=== PATIENT | female | born 1995 | race Caucasian/White ===

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

== ENCOUNTER 2017-01-02 02:54 | Emergency (ER) | payer OTHER ==
[2017-01-02 03:03] VITALS: BP 129/72; BMI 38.4
--- NOTE | 2017-01-02 03:26 | DR.GENAD ---
HPI - PCP Primary Care Physician: NFD - Complaint/Symptoms Chief Complaint Doctors Comments: LMP was last month; had a miscarriage Chief Complaint:: PT C/O HEADACHE AND NAUSEA SINCE WAKING UP. PT DENIES ANY VOMITTING. - Source History Provided: Patient - Mode of Arrival Mode of Arrival: Ambulatory - Timing Onset of Chief Complaint: 01/01/17 PMH - PMH Past Medical History: Yes Past Medical History Comment: ADD, BELLS PALSY Past Surgical History: No Surgical History: No History - Family History History of Family Medical Conditions: Yes Family Medical History: [place], Coronary Artery Disease - Social History Alcohol Use: None Do you use any recreational Drugs:: No Lives With: Significant Other Lives Where: Home - infectious screening In the last 2 months have you had wt loss of >10#?: NO Have you had fever, night sweats or hemotysis?: No Have you traveled outside the country in the last 6 months?: No Isolation: Standard ROS - Review of Systems Eyes: No Symptoms Reported ENTM: No Symptoms Reported Respiratoy: No Symptoms Reported Cardiovascular: No Symptoms Reported Gastrointestinal/Abdominal: No Symptoms Reported Genitourinary: No Symptoms Reported Neurological: No Symptoms Reported Musculoskeletal: No Symptoms Reported Integumentary: No Symptoms Reported Hematologic/Lymphatic: No Symptoms Reported Endocrine: No Symptoms Reported Psychiatric: No Symptoms Reported All Other Systems: Reviewed and Negative PE - Vital Signs Vitals: Temperature 97.8 F Pulse Rate 100 Respiratory Rate 20 Blood Pressure 129/72 O2 Sat by Pulse Oximetry 98 - General Limitations: No Limitations General Appearance: Alert, In No Apparent Distress - Head Head Exam: Normal Inspection, Atraumatic - Eyes Eye exam: Normal Appearance, PERRL, EOMI - ENT ENT Exam: Normal Exam External Ear Exam: Normal External Inspection TM/Canal Exam: Bilateral Normal Nose Exam: Normal Nose Exam Mouth Exam: Normal Inspection Throat Exam: Normal Inspection - Neck Neck Exam: Normal Inspection - Chest Chest Inspection: Normal Inspection - Respiratory Respiratory Exam: Normal Lung Sounds Bilat Respiratory Exam: Bilateral Clear to Auscultation - Cardiovascular Cardiovascular Exam: Regular Rate, Normal Rhythm - Abdominal Exam Abdominal Exam: Normal Inspection Abdominal Tenderness: negative: RUQ, RLQ, LUQ, LLQ, Epigastrium, Suprapubic, Diffuse, Mild, Moderate, Severe, Other - Extremities Extremities Exam: Normal Inspection, Full ROM - Back Back Exam: Normal Inspection - Neurologic Neurological Exam: Alert, Oriented X3, CN II-XII Intact - Psychiatric Psychiatric Exam: Normal Affect, Normal Mood - Skin Skin Exam: Warm, Dry, Intact - Diagnosis Discharge Problem: Nausea alone Headache Qualifiers: Headache type: unspecified Headache chronicity pattern: acute headache Intractability: not intractable Qualified Code(s): R51 - Headache - Discharge Plan Condition: Stable - Follow ups/Referrals Follow ups/Referrals: NFD,None [Primary Care Provider] - 3 days - Instructions
[2017-01-02] MEDS ORDERED: TORADOL 60 MG VIAL IM ONE (03:29)
[2017-01-02] MEDS ORDERED: TORADOL 60 MG VIAL ONE (03:31)
[2017-01-02] MEDS ORDERED: ZOFRAN TAB 4 MG ONE (03:33)
[2017-01-02] MEDS ORDERED: ZOFRAN TAB 4 MG PO ONE (03:39)
== END 2017-01-02 03:53 | disposition home or self-care (01) ==
LOC: ER 02:54
DX: R51 Headache (principal); R11.0 Nausea
CPT/HCPCS: 99282; S0181; J1885

== ENCOUNTER 2017-01-07 18:48 | Emergency (ER) | payer OTHER ==
[2017-01-07 18:55] VITALS: BP 108/55; BMI 39.6
== END 2017-01-07 22:00 | disposition left against medical advice (07) ==
LOC: ER 18:55
DX: R10.84 Generalized abdominal pain (principal)
CPT/HCPCS: 99281

== ENCOUNTER 2017-01-08 06:09 | Emergency (ER) | payer OTHER ==
[2017-01-08 06:20] VITALS: BP 152/90; BMI 36.8
[2017-01-08 06:56] LABS: BILIRUBIN,URINE NEGATIVE (NEGATIVE); BLOOD/HEMOGLOBIN,URINE 2+ (NEGATIVE); GLUCOSE, URINE NEGATIVE (NEGATIVE); KETONES,URINE NEGATIVE (NEGATIVE); LEUKOCYTE ESTERASE ,URINE NEGATIVE (NEGATIVE); NITRITES,URINE NEGATIVE (NEGATIVE); PROTEIN,URINE 1+ (NEGATIVE); UROBILINOGEN,URINE 1+ (NORMAL)
[2017-01-08 07:03] LABS: BASOPHILS # (AUTO) 0.1 X10^3/uL (0.0-0.1); EOSINOPHILS # (AUTO) 0.2 x10^3/uL (0.0-0.2); EOSINOPHILS % (AUTO) 2.6 % (0.9-2.9); HEMATOCRIT 39.8 % (36.0-47.0); LYMPHOCYTES # (AUTO) 2.7 X10^3/uL (1.3-2.9); LYMPHOCYTES % (AUTO) 30.3 % (21.0-51.0); MEAN CORPUSCULAR HEMOGLOBIN 30.4 pg (27.0-34.0); MEAN CORPUSCULAR HGB CONC 35.1 g/dL (33.0-35.0); MEAN CORPUSCULAR VOLUME 86.6 fL (80.0-100.0); MEAN PLATELET VOLUME 6.9 fL (7.4-11.0); MONOCYTES # (AUTO) 0.8 x10^3/uL (0.3-0.8); MONOCYTES % (AUTO) 9.2 % (0.0-13.0); NEUTROPHILS % (AUTO) 56.9 % (42.0-75.0); PLATELET COUNT 328 X10^3/uL (150.0-450.0); RED BLOOD COUNT 4.59 X10^6/uL (3.5-5.4); RED CELL DISTRIBUTION WIDTH 13.7 % (11.6-16.5); WHITE BLOOD COUNT 8.9 X10^3/uL (3.6-10.0)
[2017-01-08 07:06] LABS: APPEARANCE,URINE SLIGHTLY HAZY (CLEAR); BACTERIA,URINE TRACE /HPF (NEGATIVE); COLOR,URINE DARK YELLOW (YELLOW); SQUAMOUS EPITHELIAL CELL,UR RARE /HPF (NEGATIVE)
[2017-01-08 07:07] LABS: MUCUS,URINE FEW /HPF (NEGATIVE)
[2017-01-08 07:13] LABS: ALANINE AMINOTRANSFERASE 26 Units/L (12-78); ALBUMIN 3.4 g/dL (3.4-5.0); ALKALINE PHOSPHATASE 85 Units/L (45-150); ASPARTATE AMINO TRANSFERASE 18 Units/L (15-37); BLOOD UREA NITROGEN 9 mg/dL (7-18); CALCIUM 8.7 mg/dL (8.5-10.1); CARBON DIOXIDE 29.9 mmol/L (21-32); CHLORIDE 106 mmol/L (98-107); GLUCOSE 84 mg/dL (65-99); SODIUM 141 mmol/L (136-145); TOTAL PROTEIN 7.5 g/dL (6.4-8.2); eGFR BLACK RACES > 60 (>60); eGFR NON BLACK RACES > 60 (>60)
[2017-01-08 07:26] LABS: SERUM PREGNANCY TEST, QUAL NEGATIVE <10 mIU/mL
== END 2017-01-08 08:21 | disposition left against medical advice (07) ==
LOC: ER 06:09
DX: R10.84 Generalized abdominal pain (principal)
CPT/HCPCS: 36415; 80053; 81001; 84703; 85025; 99281; 99282

== ENCOUNTER 2017-02-08 08:16 | Emergency (ER) | payer OTHER ==
[2017-02-08 08:22] VITALS: BP 126/96; BMI 37.5
--- NOTE | 2017-02-08 09:00 | DR.GENAD ---
HPI - PCP Primary Care Physician: none - HPI Comment HPI Comment: PATIENT HAVE SORE THROAT AND CONGESTION SINCE YESTERDAY. FEVER LAST NIGHT PRESENT NOW. WORSE TODAY. - Complaint/Symptoms Chief Complaint Doctors Comments: SORE THROAT, CONGESTION TIMES ONE DAY. Chief Complaint:: pt throat started hurting yesterday and she can't breath out her nose - Nurses notes reviewed Nurses Notes Review: Yes - Source History Provided: Patient - Mode of Arrival Mode of Arrival: Ambulatory - Timing Onset of Chief Complaint: 02/07/17 Came on: Suddenly - Duration Duration: Constant Duration: Days PMH - PMH Past Medical History: Yes Past Medical History: Anxiety Past Medical History Comment: ADD, Past Surgical History: No Surgical History: No History - Family History History of Family Medical Conditions: Yes Family Medical History: [place] - Social History Does patient currently use any type of tobacco product: Yes Have you used tobacco products in the last 12 months: Yes Type of Tobacco Use: Cigarettes How many years tobacco product used: 2 Does any household member use tobacco: No Alcohol Use: None Do you use any recreational Drugs:: No Lives With: Family Lives Where: Home - infectious screening In the last 2 months have you had wt loss of >10#?: NO Have you had fever, night sweats or hemotysis?: No Have you traveled outside the country in the last 6 months?: No Isolation: Standard ROS - Review of Systems Constitutional: Fever. negative: Chills, Weakness, Fatigue Eyes: No Symptoms Reported. negative: Eye Pain, Discharge ENTM: Ear Pain, Nose Discharge, Nose Congestion, Throat Pain Respiratoy: Non-Productive Cough. negative: Short of Breath, Wheezing, Hemoptysis Gastrointestinal/Abdominal: No Symptoms Reported Genitourinary: No Symptoms Reported Neurological: No Symptoms Reported Musculoskeletal: Muscle Pain Integumentary: No Symptoms Reported Hematologic/Lymphatic: No Symptoms Reported Endocrine: No Symptoms Reported All Other Systems: Reviewed and Negative PE - Vital Signs Vitals: Temperature 99.7 F Pulse Rate 100 Respiratory Rate 18 Blood Pressure 126/96 O2 Sat by Pulse Oximetry 98 - General Limitations: No Limitations General Appearance: Alert - Head Head Exam: Normal Inspection - Eyes Eye exam: Normal Appearance - ENT ENT Exam: Normal External Ear Exam External Ear Exam: Normal External Inspection TM/Canal Exam: Bilateral Normal Nose Exam: Normal Nose Exam Mouth Exam: Normal Inspection Throat Exam: Normal Inspection - Neck Neck Exam: Normal Inspection - Chest Chest Inspection: Symmetric Chest Wall Rise - Respiratory Respiratory Exam: Normal Lung Sounds Bilat Respiratory Exam: Bilateral Clear to Auscultation - Cardiovascular Cardiovascular Exam: Regular Rate, Normal Rhythm, Normal Heart Sounds - Abdominal Exam Abdominal Exam: Normal Bowel Sounds, Soft. negative: Tenderness - Extremities Extremities Exam: Normal Inspection - Back Back Exam: Normal Inspection - Neurologic Neurological Exam: Alert, Oriented X3 - Psychiatric Psychiatric Exam: Normal Affect, Normal Mood - Skin Skin Exam: Normal Color MDM - Additional Information Additional Information Obtained From: Family - Differential Diagnosis Differential Diagnosis: SORE THROAT, SINUSITIS, URI, BRONCHITIS Course - Treatment Treatment: SEE ORDERS - Education/Counseling Education/Counseling: Patient, Family, Education Educated On: Treatment, Diagnosis, Needs for Follow Up ROR - Labs Reviewed Laboratory Results Reviewed?: Yes Laboratory: Streptococcus Screen Negative (NEGATIVE) 02/08/17 09:00 - Diagnosis Discharge Problem: Sore throat Sinusitis Qualifiers: Sinusitis location: unspecified location Chronicity: acute Recurrence: not specified as recurrent Qualified Code(s): J01.90 - Acute sinusitis, unspecified - Discharge Plan Disposition: HOME, SELF-CARE Condition: Stable Prescriptions: Amoxicillin [Amoxil 875 mg] 875 mg PO Q12H #20 tab Cetirizine HCl [Zyrtec Tab 10 mg] 10 mg PO DAILY #10 tab Ibuprofen [MOTRIN TAB 600 MG *] 600 mg PO TID PRN #20 tab PRN Reason: Pain/Inflammation - Follow ups/Referrals Follow ups/Referrals: NFD,None [Primary Care Provider] - 3 days - Instructions Instructions: Sinusitis, Adult, [id number] Additional Instructions: RETURN TO ED IF WORSE.
== END 2017-02-08 10:41 | disposition home or self-care (01) ==
LOC: ER 08:32
DX: J01.80 Other acute sinusitis (principal); J02.9 Acute pharyngitis, unspecified
CPT/HCPCS: 87070; 87880; 99282

== ENCOUNTER 2017-02-21 08:22 | Emergency (ER) | payer OTHER ==
[2017-02-21 08:35] VITALS: BP 138/69; BMI 36.6
--- NOTE | 2017-02-21 09:04 | ED.ABDFE ---
HPI - Time seen Time seen: 09:00 - PCP Primary Care Physician: ADELE - HPI Comment HPI Comment: LATE PERIOD TIMES 2 WEEKS. LOWER ABDOMINAL PAIN SINCE LAST NIGHT. NO FEVER. NAUSEATED. NO DIARRHEA. - Complaint Chief Complaint Doctors Comments: LOWER ABDOMINAL PAIN, NAUSEA AND LATE PERIOD. Chief Complaint:: PT C/O LOWER ABD PAIN THAT STARTED LASTNIGHT AND N/V TIMES ONE PT IS FOUR DAYS LATE ON HER PERIOD AND SHE TOOK 2 TEST ON 02/20/17 AND THEY WERE (-) ..... - Nurses notes reviewed Nurses Notes Review: Yes - Source History Provided: Patient - Mode of arrival Mode of Arrival: Ambulatory - Timing Onset of Chief Complaint: 02/20/17 Came on: Suddenly - Duration Duration: Constant Duration: Hours - Location Location: LUQ, LLQ, Suprapubic - Severity Severity: Moderate - Quality Quality: Sharp - Context Onset: Suddenly - Modifying Worsening Factors: Nothing Improving Factors: Nothing - Associated signs and symptoms Associated Signs and Symptoms: Nausea PMH - PMH Past Medical History: Yes Past Medical History: Anxiety Past Medical History Comment: ADHD, MOOD DISORDER , BELLS PALSY.. Past Surgical History: No Surgical History: No History - Family History History of Family Medical Conditions: Yes Family Medical History: Hypertension Family Medical History Comment: HEART? - Social History Does patient currently use any type of tobacco product: Yes Have you used tobacco products in the last 12 months: Yes Type of Tobacco Use: Cigarettes How many years tobacco product used: 2 Does any household member use tobacco: No Alcohol Use: None Do you use any recreational Drugs:: No Lives With: Family Lives Where: Home - infectious screening In the last 2 months have you had wt loss of >10#?: NO Have you had fever, night sweats or hemotysis?: No Have you traveled outside the country in the last 6 months?: No Isolation: Standard ROS - Review of Systems Constitutional: No Symptoms Reported Eyes: No Symptoms Reported ENTM: No Symptoms Reported Respiratoy: No Symptoms Reported Cardiovascular: No Symptoms Reported Gastrointestinal/Abdominal: Abdominal Pain, Nausea Genitourinary: negative: Dysuria, Frequency, Hematuria Neurological: No Symptoms Reported Musculoskeletal: No Symptoms Reported Integumentary: No Symptoms Reported Hematologic/Lymphatic: No Symptoms Reported Endocrine: No Symptoms Reported All Other Systems: Reviewed and Negative PE - Vital Signs Vitals: Temperature 98.7 F Pulse Rate 86 Respiratory Rate 20 Blood Pressure 138/69 O2 Sat by Pulse Oximetry 97 - General Limitations: No Limitations General Appearance: Alert - Head Head Exam: Normal Inspection - Eyes Eye exam: Normal Appearance - ENT ENT Exam: Normal External Ear Exam - Neck Neck Exam: Trachea Midline - Chest Chest Inspection: Symmetric Chest Wall Rise - Respiratory Respiratory Exam: Normal Lung Sounds Bilat Respiratory Exam: Bilateral Clear to Auscultation - Cardiovascular Cardiovascular Exam: Regular Rate, Normal Rhythm, Normal Heart Sounds - Abdominal Exam Abdominal Exam: Normal Bowel Sounds, Soft. negative: Tenderness - Rectal Rectal Exam: Deferred - Back Back Exam: Normal Inspection - External Exam: Female: Normal External Exam : Speculum Exam (Female): Deferred : Bimanual Exam (female): Deferred - Neurologic Neurological Exam: Alert, Oriented X3 - Psychiatric Psychiatric Exam: Normal Affect, Normal Mood - Skin Skin Exam: Normal Color MDM - Differential Diagnosis Differential Diagnosis- Considerations may include:: Cholelethiasis, Gastritus/ PUD, Urinary tract infection Course - Treatment Treatment: SEE ORDERS. ORAL POTASSIUM AND ZOFRAN IN ED. - Education/Counseling Education/Counseling: Patient, Education Educated On: Treatment, Diagnosis, Needs for Follow Up ROR - Labs Reviewed Laboratory Results Reviewed?: Yes Result Diagrams: 02/21/17 09:15 02/21/17 09:15 Laboratory: WBC 8.9 X10^3/uL (3.6-10.0) 02/21/17 09:15 RBC 4.33 X10^6/uL (3.5-5.4) 02/21/17 09:15 Hgb 13.1 g/dL (12.0-16.0) 02/21/17 09:15 Hct 37.7 % (36.0-47.0) 02/21/17 09:15 MCV 87.1 fL (80.0-100.0) 02/21/17 09:15 MCH 30.2 pg (27.0-34.0) 02/21/17 09:15 MCHC 34.7 g/dL (33.0-35.0) 02/21/17 09:15 RDW 13.6 % (11.6-16.5) 02/21/17 09:15 Plt Count 301 X10^3/uL (150.0-450.0) 02/21/17 09:15 MPV 7.1 fL (7.4-11.0) L 02/21/17 09:15 Neut % 58.0 % (42.0-75.0) 02/21/17 09:15 Lymph % 30.0 % (21.0-51.0) 02/21/17 09:15 [place] % 6.4 % (0.0-13.0) 02/21/17 09:15 Eos % 4.4 % (0.9-2.9) H 02/21/17 09:15 Baso % 1.2 % (0.2-1.0) H 02/21/17 09:15 Neut # 5.2 x10^3/uL (2.2-4.8) H 02/21/17 09:15 Lymph # 2.7 X10^3/uL (1.3-2.9) 02/21/17 09:15 [place] # 0.6 x10^3/uL (0.3-0.8) 02/21/17 09:15 Eos # 0.4 x10^3/uL (0.0-0.2) H 02/21/17 09:15 Baso # 0.1 X10^3/uL (0.0-0.1) 02/21/17 09:15 Absolute Nucleated RBC 0.0 /100WBC 02/21/17 09:15 Sodium 143 mmol/L (136-145) 02/21/17 09:15 Corrected Sodium TNP 02/21/17 09:15 Potassium 3.4 mmol/L (3.5-5.1) L 02/21/17 09:15 Chloride 108 mmol/L (98-107) H 02/21/17 09:15 Carbon Dioxide 28.7 mmol/L (21-32) 02/21/17 09:15 BUN 8 mg/dL (7-18) 02/21/17 09:15 Creatinine 0.73 mg/dL (0.55-1.02) 02/21/17 09:15 Est GFR (MDRD) Af Amer > 60 (>60) 02/21/17 09:15 Est GFR (MDRD) Non-Af > 60 (>60) 02/21/17 09:15 Glucose 82 mg/dL (65-99) 02/21/17 09:15 Calcium 8.5 mg/dL (8.5-10.1) 02/21/17 09:15 Corrected Calcium 9.3 mg/dL (8.5-10.1) 02/21/17 09:15 Total Bilirubin 0.50 mg/dL (0.2-1.0) 02/21/17 09:15 AST 18 Units/L (15-37) 02/21/17 09:15 ALT 23 Units/L (12-78) 02/21/17 09:15 Alkaline Phosphatase 81 Units/L (46-116) 02/21/17 09:15 Total Protein 6.8 g/dL (6.4-8.2) 02/21/17 09:15 Albumin 3.0 g/dL (3.4-5.0) L 02/21/17 09:15 Globulin 3.8 g/dL (2.5-4.5) 02/21/17 09:15 Albumin/Globulin Ratio 0.8 Ratio (1.1-2.1) L 02/21/17 09:15 Amylase 37 Units/L (25-115) 02/21/17 09:15 Lipase 103 Units/L (73-393) 02/21/17 09:15 HCG, Qual Negative <10 mIU/mL 02/21/17 09:15 Specimen Type Clean catch urine 02/21/17 09:22 Urine Color Yellow (YELLOW) 02/21/17 09: Urine Appearance Cloudy (CLEAR) 02/21/17 09:22 Urine pH 5.0 (5.0 - 8.0) 02/21/17 09:22 Ur Specific [place] 1.025 (1.000-1.030) 02/21/17 09:22 Urine Protein 2+ (NEGATIVE) 02/21/17 09:22 Urine Glucose (UA) Negative (NEGATIVE) 02/21/17 09: Urine Ketones Negative (NEGATIVE) 02/21/17 09: Urine Occult Blood 2+ (NEGATIVE) 02/21/17 09:22 Urine Nitrite Negative (NEGATIVE) 02/21/17 09:22 Urine Bilirubin Negative (NEGATIVE) 02/21/17 09:22 Urine Urobilinogen Normal (NORMAL) 02/21/17 09:22 Ur Leukocyte Esterase 3+ (NEGATIVE) 09/10/17 09:22 Urine RBC 0-5 /HPF (NEGATIVE) 02/21/17 09:22 Urine WBC 5-6 /HPF (NEGATIVE) 02/21/17 09:22 Ur Squamous Epith Cells Moderate /HPF (NEGATIVE) 02/21/17 09:22 Urine Bacteria Trace /HPF (NEGATIVE) 02/21/17 09:22 Ur Culture Indicated? No/not indicated 02/21/17 09:22 - Diagnosis Discharge Problem: Late period Abdominal pain Qualifiers: Abdominal location: lower abdomen, unspecified Qualified Code(s): R10.30 - Lower abdominal pain, unspecified - Discharge Plan Disposition: 01 HOME, SELF-CARE Condition: Stable Prescriptions: Ondansetron HCl [Zofran Tab 4 mg] 4 mg PO Q8H PRN #12 tab PRN Reason: Nausea/Vomiting - Follow ups/Referrals Follow ups/Referrals: NFD,None [Primary Care Provider] - 3 days - Instructions Instructions: Abdominal Pain, Adult, [id number] Additional Instructions: RETURN TO ED IF WORSE.
[2017-02-21 09:26] LABS: BASOPHILS # (AUTO) 0.1 X10^3/uL (0.0-0.1); BASOPHILS % (AUTO) 1.2 % (0.2-1.0); EOSINOPHILS # (AUTO) 0.4 x10^3/uL (0.0-0.2); EOSINOPHILS % (AUTO) 4.4 % (0.9-2.9); HEMATOCRIT 37.7 % (36.0-47.0); HEMOGLOBIN 13.1 g/dL (12.0-16.0); LYMPHOCYTES # (AUTO) 2.7 X10^3/uL (1.3-2.9); MEAN CORPUSCULAR HEMOGLOBIN 30.2 pg (27.0-34.0); MEAN CORPUSCULAR HGB CONC 34.7 g/dL (33.0-35.0); MEAN CORPUSCULAR VOLUME 87.1 fL (80.0-100.0); MEAN PLATELET VOLUME 7.1 fL (7.4-11.0); MONOCYTES # (AUTO) 0.6 x10^3/uL (0.3-0.8); MONOCYTES % (AUTO) 6.4 % (0.0-13.0); NEUTROPHILS # (AUTO) 5.2 x10^3/uL (2.2-4.8); PLATELET COUNT 301 X10^3/uL (150.0-450.0); RED BLOOD COUNT 4.33 X10^6/uL (3.5-5.4); RED CELL DISTRIBUTION WIDTH 13.6 % (11.6-16.5); WHITE BLOOD COUNT 8.9 X10^3/uL (3.6-10.0)
[2017-02-21 09:31] LABS: BILIRUBIN,URINE NEGATIVE (NEGATIVE); BLOOD/HEMOGLOBIN,URINE 2+ (NEGATIVE); GLUCOSE, URINE NEGATIVE (NEGATIVE); KETONES,URINE NEGATIVE (NEGATIVE); LEUKOCYTE ESTERASE ,URINE 3+ (NEGATIVE); NITRITES,URINE NEGATIVE (NEGATIVE); PROTEIN,URINE 2+ (NEGATIVE); UROBILINOGEN,URINE NORMAL (NORMAL)
[2017-02-21 09:34] LABS: ALANINE AMINOTRANSFERASE 23 Units/L (12-78); ALKALINE PHOSPHATASE 81 Units/L (46-116); AMYLASE 37 Units/L (25-115); ASPARTATE AMINO TRANSFERASE 18 Units/L (15-37); BLOOD UREA NITROGEN 8 mg/dL (7-18); CALCIUM 8.5 mg/dL (8.5-10.1); CARBON DIOXIDE 28.7 mmol/L (21-32); CHLORIDE 108 mmol/L (98-107); COR CA(FOR HYPOALB) 9.3 mg/dL (8.5-10.1); CREATININE 0.73 mg/dL (0.55-1.02); LIPASE 103 Units/L (73-393); SODIUM 143 mmol/L (136-145); TOTAL PROTEIN 6.8 g/dL (6.4-8.2); eGFR BLACK RACES > 60 (>60); eGFR NON BLACK RACES > 60 (>60)
[2017-02-21 09:35] LABS: SERUM PREGNANCY TEST, QUAL NEGATIVE <10 mIU/mL
[2017-02-21 09:39] LABS: APPEARANCE,URINE CLOUDY (CLEAR); BACTERIA,URINE TRACE /HPF (NEGATIVE); COLOR,URINE YELLOW (YELLOW); RBC,URINE 0-5 /HPF (NEGATIVE); SQUAMOUS EPITHELIAL CELL,UR MODERATE /HPF (NEGATIVE)
[2017-02-21] MEDS ORDERED: ZOFRAN TAB 4 MG PO ONE (10:02)
[2017-02-21] MEDS ORDERED: POTASSIUM CHLORIDE LIQ 20 MEQ UDC PO ONE (10:03)
[2017-02-21] MEDS ORDERED: K-DUR TAB 20 MEQ PO ONE (10:07)
[2017-02-21] MEDS ORDERED: ZOFRAN TAB 4 MG ONE (10:08)
== END 2017-02-21 10:12 | disposition home or self-care (01) ==
LOC: ER 08:22
DX: N92.6 Irregular menstruation, unspecified (principal); R10.84 Generalized abdominal pain
CPT/HCPCS: 36415; 80053; 81001; 82150; 83690; 84703; 85025; 99282; S0181

== ENCOUNTER 2017-03-16 16:42 | Emergency (ER) | payer OTHER ==
[2017-03-16 16:46] VITALS: BP 126/73; BMI 38.4
--- NOTE | 2017-03-16 17:46 | DR.GENAD ---
HPI - PCP Primary Care Physician: nfd - HPI Comment HPI Comment: PAIN IS SHARP AND NON RADIATING. DENIES FEVER. SIMILAR PAIN FEW MONTHS AGO AND WENT AWAY. - Complaint/Symptoms Chief Complaint Doctors Comments: PAIN RIGHT LOWER ABDOMEN TIMES 3 DAYS. Chief Complaint:: patient stated she has been having right lower abd pain for 2 to 3 days. Self Treatment fo Chief Complaint: tylenol - Nurses notes reviewed Nurses Notes Review: Yes - Source History Provided: Patient - Mode of Arrival Mode of Arrival: Ambulatory - Timing Onset of Chief Complaint: 03/12/17 Came on: Suddenly - Duration Duration: Constant Duration: Days - Severity Severity: Moderate PMH - PMH Past Medical History: No Past Medical History: Anxiety Past Surgical History: No Surgical History: No History - Family History History of Family Medical Conditions: No Family Medical History: Hypertension - Social History Does patient currently use any type of tobacco product: Yes Have you used tobacco products in the last 12 months: Yes Type of Tobacco Use: Cigarettes How many years tobacco product used: 2 Does any household member use tobacco: Yes Alcohol Use: None Do you use any recreational Drugs:: No Lives With: Family Lives Where: Home - infectious screening In the last 2 months have you had wt loss of >10#?: NO Have you had fever, night sweats or hemotysis?: No Have you traveled outside the country in the last 6 months?: No Isolation: Standard ROS - Review of Systems Constitutional: No Symptoms Reported. negative: Chills, Fever, Weakness, Fatigue, Loss of Appetite Eyes: No Symptoms Reported. negative: Eye Pain, Discharge ENTM: No Symptoms Reported. negative: Ear Pain, Nose Discharge, Nose Congestion , Throat Pain Respiratoy: No Symptoms Reported. negative: Productive Cough, Non-Productive Cough, Short of Breath, Wheezing, Hemoptysis Cardiovascular: No Symptoms Reported Gastrointestinal/Abdominal: Abdominal Pain Genitourinary: No Symptoms Reported Neurological: No Symptoms Reported Musculoskeletal: No Symptoms Reported Integumentary: No Symptoms Reported Hematologic/Lymphatic: No Symptoms Reported Endocrine: No Symptoms Reported All Other Systems: Reviewed and Negative PE - Vital Signs Vitals: Temperature 98.9 F Pulse Rate 100 Respiratory Rate 16 Blood Pressure 126/73 O2 Sat by Pulse Oximetry 100 - General Limitations: No Limitations General Appearance: Alert - Head Head Exam: Normal Inspection - Eyes Eye exam: Normal Appearance - ENT ENT Exam: Normal External Ear Exam External Ear Exam: Normal External Inspection TM/Canal Exam: Bilateral Normal Mouth Exam: Normal Inspection Throat Exam: Normal Inspection - Neck Neck Exam: Normal Inspection - Chest Chest Inspection: Symmetric Chest Wall Rise - Respiratory Respiratory Exam: Normal Lung Sounds Bilat Respiratory Exam: Bilateral Clear to Auscultation - Cardiovascular Cardiovascular Exam: Regular Rate, Normal Rhythm, Normal Heart Sounds - Abdominal Exam Abdominal Exam: Normal Bowel Sounds, Soft. negative: Tenderness - Extremities Extremities Exam: Normal Inspection - Back Back Exam: Normal Inspection - Neurologic Neurological Exam: Alert, Oriented X3 - Psychiatric Psychiatric Exam: Normal Affect, Normal Mood - Skin Skin Exam: Normal Color MDM - Additional Information Additional Information Obtained From: Family - Differential Diagnosis Differential Diagnosis: ABDOMINAL PAIN, UTI, OVARIAN CYST Course - Treatment Treatment: SEE ORDERS. - Education/Counseling Education/Counseling: Patient, Family, Education Educated On: Treatment, Diagnosis, Needs for Follow Up ROR - Labs Reviewed Laboratory Results Reviewed?: Yes Result Diagrams: 03/16/17 18:00 03/16/17 18:00 Laboratory: WBC 10.3 X10^3/uL (3.6-10.0) H 03/16/17 18:00 RBC 4.43 X10^6/uL (3.5-5.4) 03/16/17 18:00 Hgb 13.4 g/dL (12.0-16.0) 03/16/17 18:00 Hct 38.2 % (36.0-47.0) 03/16/17 18:00 MCV 86.1 fL (80.0-100.0) 03/16/17 18:00 MCH 30.3 pg (27.0-34.0) 03/16/17 18:00 MCHC 35.2 g/dL (33.0-35.0) H 03/16/17 18:00 RDW 13.3 % (11.6-16.5) 03/16/17 18:00 Plt Count 384 X10^3/uL (150.0-450.0) 03/16/17 18:00 MPV 6.6 fL (7.4-11.0) L 03/16/17 18:00 Neut % 66.1 % (42.0-75.0) 03/16/17 18:00 Lymph % 24.4 % (21.0-51.0) 03/16/17 18:00 [place] % 6.2 % (0.0-13.0) 03/16/17 18:00 Eos % 2.6 % (0.9-2.9) 03/16/17 18:00 Baso % 0.7 % (0.2-1.0) 03/16/17 18:00 Neut # 6.8 x10^3/uL (2.2-4.8) H 03/16/17 18:00 Lymph # 2.5 X10^3/uL (1.3-2.9) 03/16/17 18:00 [place] # 0.6 x10^3/uL (0.3-0.8) 03/16/17 18:00 Eos # 0.3 x10^3/uL (0.0-0.2) H 03/16/17 18:00 Baso # 0.1 X10^3/uL (0.0-0.1) 03/16/17 18:00 Absolute Nucleated RBC 0.0 /100WBC 03/16/17 18:00 Sodium 140 mmol/L (136-145) 03/16/17 18:00 Corrected Sodium TNP 03/16/17 18:00 Potassium 4.3 mmol/L (3.5-5.1) 03/16/17 18:00 Chloride 106 mmol/L (98-107) 03/16/17 18:00 Carbon Dioxide 30.2 mmol/L (21-32) 03/16/17 18:00 BUN 8 mg/dL (7-18) 03/16/17 18:00 Creatinine 0.74 mg/dL (0.55-1.02) 03/16/17 18:00 Est GFR (MDRD) Af Amer > 60 (>60) 03/16/17 18:00 Est GFR (MDRD) Non-Af > 60 (>60) 03/16/17 18:00 Glucose 83 mg/dL (65-99) 03/16/17 18:00 Calcium 8.9 mg/dL (8.5-10.1) 03/16/17 18:00 Corrected Calcium 9.6 mg/dL (8.5-10.1) 03/16/17 18:00 Total Bilirubin 0.40 mg/dL (0.2-1.0) 03/16/17 18:00 AST 16 Units/L (15-37) 03/16/17 18:00 ALT 26 Units/L (12-78) 03/16/17 18:00 Alkaline Phosphatase 92 Units/L (46-116) 03/16/17 18:00 Total Protein 7.0 g/dL (6.4-8.2) 03/16/17 18:00 Albumin 3.1 g/dL (3.4-5.0) L 03/16/17 18:00 Globulin 3.9 g/dL (2.5-4.5) 03/16/17 18:00 Albumin/Globulin Ratio 0.8 Ratio (1.1-2.1) L 03/16/17 18:00 HCG, Qual Negative <10 mIU/mL 03/16/17 18:00 Specimen Type Clean catch urine 03/16/17 18:47 Urine Color Yellow (YELLOW) 03/16/17 18:47 Urine Appearance Clear (CLEAR) 03/16/17 18:47 Urine pH 8.0 (5.0 - 8.0) 03/16/17 18:47 Ur Specific [place] 1.015 (1.000-1.030) 03/16/17 18:47 Urine Protein Negative (NEGATIVE) 03/16/17 18:47 Urine Glucose (UA) Negative (NEGATIVE) 03/16/17 18:47 Urine Ketones Negative (NEGATIVE) 03/16/17 18:47 Urine Occult Blood Negative (NEGATIVE) 03/16/17 18:47 Urine Nitrite Negative (NEGATIVE) 03/16/17 18:47 Urine Bilirubin Negative (NEGATIVE) 03/16/17 18:47 Urine Urobilinogen Normal (NORMAL) 03/16/17 18:47 Ur Leukocyte Esterase Negative (NEGATIVE) 03/16/17 18:47 Urine RBC None seen /HPF (NEGATIVE) 03/16/17 18:47 Urine WBC 0-1 /HPF (NEGATIVE) 03/16/17 18:47 Ur Squamous Epith Cells Rare /HPF (NEGATIVE) 03/16/17 18:47 Urine Bacteria Trace /HPF (NEGATIVE) 03/16/17 18:47 Ur Culture Indicated? No/not indicated 03/16/17 18:47 - Diagnosis Discharge Problem: Abdominal pain Qualifiers: Abdominal location: right lower quadrant Qualified Code(s): R10.31 - Right lower quadrant pain - Discharge Plan Disposition: 01 HOME, SELF-CARE Condition: Stable - Follow ups/Referrals Follow ups/Referrals: NFD,None [Primary Care Provider] - 3 days - Instructions Instructions: Abdominal Pain, Adult, [id number] Additional Instructions: RETURN TO ED IF WORSE.
[2017-03-16 18:08] LABS: BASOPHILS # (AUTO) 0.1 X10^3/uL (0.0-0.1); BASOPHILS % (AUTO) 0.7 % (0.2-1.0); EOSINOPHILS # (AUTO) 0.3 x10^3/uL (0.0-0.2); EOSINOPHILS % (AUTO) 2.6 % (0.9-2.9); HEMATOCRIT 38.2 % (36.0-47.0); HEMOGLOBIN 13.4 g/dL (12.0-16.0); LYMPHOCYTES # (AUTO) 2.5 X10^3/uL (1.3-2.9); LYMPHOCYTES % (AUTO) 24.4 % (21.0-51.0); MEAN CORPUSCULAR HEMOGLOBIN 30.3 pg (27.0-34.0); MEAN CORPUSCULAR HGB CONC 35.2 g/dL (33.0-35.0); MEAN CORPUSCULAR VOLUME 86.1 fL (80.0-100.0); MEAN PLATELET VOLUME 6.6 fL (7.4-11.0); MONOCYTES # (AUTO) 0.6 x10^3/uL (0.3-0.8); MONOCYTES % (AUTO) 6.2 % (0.0-13.0); NEUTROPHILS # (AUTO) 6.8 x10^3/uL (2.2-4.8); NEUTROPHILS % (AUTO) 66.1 % (42.0-75.0); PLATELET COUNT 384 X10^3/uL (150.0-450.0); RED BLOOD COUNT 4.43 X10^6/uL (3.5-5.4); RED CELL DISTRIBUTION WIDTH 13.3 % (11.6-16.5); WHITE BLOOD COUNT 10.3 X10^3/uL (3.6-10.0)
[2017-03-16 18:17] LABS: SERUM PREGNANCY TEST, QUAL NEGATIVE <10 mIU/mL
[2017-03-16 18:21] LABS: ALANINE AMINOTRANSFERASE 26 Units/L (12-78); ALBUMIN 3.1 g/dL (3.4-5.0); ALKALINE PHOSPHATASE 92 Units/L (46-116); ASPARTATE AMINO TRANSFERASE 16 Units/L (15-37); BLOOD UREA NITROGEN 8 mg/dL (7-18); CALCIUM 8.9 mg/dL (8.5-10.1); CARBON DIOXIDE 30.2 mmol/L (21-32); CHLORIDE 106 mmol/L (98-107); COR CA(FOR HYPOALB) 9.6 mg/dL (8.5-10.1); CREATININE 0.74 mg/dL (0.55-1.02); SODIUM 140 mmol/L (136-145); eGFR BLACK RACES > 60 (>60); eGFR NON BLACK RACES > 60 (>60)
[2017-03-16 19:11] LABS: APPEARANCE,URINE CLEAR (CLEAR); BILIRUBIN,URINE NEGATIVE (NEGATIVE); BLOOD/HEMOGLOBIN,URINE NEGATIVE (NEGATIVE); COLOR,URINE YELLOW (YELLOW); GLUCOSE, URINE NEGATIVE (NEGATIVE); KETONES,URINE NEGATIVE (NEGATIVE); LEUKOCYTE ESTERASE ,URINE NEGATIVE (NEGATIVE); NITRITES,URINE NEGATIVE (NEGATIVE); PROTEIN,URINE NEGATIVE (NEGATIVE); UROBILINOGEN,URINE NORMAL (NORMAL)
[2017-03-16 19:12] LABS: BACTERIA,URINE TRACE /HPF (NEGATIVE); RBC,URINE NONE SEEN /HPF (NEGATIVE); SQUAMOUS EPITHELIAL CELL,UR RARE /HPF (NEGATIVE)
== END 2017-03-16 19:31 | disposition home or self-care (01) ==
LOC: ER 16:57
DX: R10.31 Right lower quadrant pain (principal)
CPT/HCPCS: 36415; 80053; 81001; 84703; 85025; 99282

== ENCOUNTER 2017-05-20 11:00 | Emergency (ER) | payer MEDICAID ==
[2017-05-20 11:06] VITALS: BP 132/87; BMI 37.5
--- NOTE | 2017-05-20 11:28 | DR.GENAD ---
HPI - PCP Primary Care Physician: [id number] - Complaint/Symptoms Chief Complaint:: PT C/O PAIN TO THE RIGHT SIDE OF HER MOUTH WHILE EATING CEREAL A FEW DAYS AGO PT STATES THAT IT'S NOT HER TOOTH ,, PT C/O THAT IS PAIN TO TOUCH THE OUTSIDE OF THE JAW AND THE INSIDE ". Self Treatment fo Chief Complaint: MOTRIN, TYLENOL. - Source History Provided: Patient - Mode of Arrival Mode of Arrival: Ambulatory - Timing Onset of Chief Complaint: 05/17/17 PMH - PMH Past Medical History: Yes Past Medical History: Anxiety Past Medical History Comment: BELLS PALSY, ADD Past Surgical History: No Surgical History: No History - Family History History of Family Medical Conditions: No Family Medical History: Hypertension - Social History Does patient currently use any type of tobacco product: Yes Have you used tobacco products in the last 12 months: Yes Type of Tobacco Use: Cigarettes How many years tobacco product used: 2 Does any household member use tobacco: No Alcohol Use: None Do you use any recreational Drugs:: No Lives With: Family Lives Where: Home - infectious screening In the last 2 months have you had wt loss of >10#?: NO Have you had fever, night sweats or hemotysis?: No Have you traveled outside the country in the last 6 months?: No Isolation: Standard ROS - Review of Systems Eyes: No Symptoms Reported ENTM: No Symptoms Reported Respiratoy: No Symptoms Reported Cardiovascular: No Symptoms Reported Gastrointestinal/Abdominal: No Symptoms Reported Genitourinary: No Symptoms Reported Neurological: No Symptoms Reported Musculoskeletal: No Symptoms Reported Integumentary: No Symptoms Reported Hematologic/Lymphatic: No Symptoms Reported Endocrine: No Symptoms Reported Psychiatric: No Symptoms Reported All Other Systems: Reviewed and Negative PE - Vital Signs Vitals: Temperature 98.6 F Pulse Rate 96 Respiratory Rate 18 Blood Pressure 132/87 O2 Sat by Pulse Oximetry 96 - General General Appearance: Alert, In No Apparent Distress - Head Head Exam: Normal Inspection, Atraumatic - Eyes Eye exam: Normal Appearance, PERRL, EOMI, Scleral Icterus - ENT ENT Exam: Normal Exam, Other (gingiva hyerplasis between teeth #30&31) External Ear Exam: Normal External Inspection TM/Canal Exam: Bilateral Normal Nose Exam: Normal Nose Exam Mouth Exam: Normal Inspection, Other (tongue geographic) Throat Exam: Normal Inspection - Neck Neck Exam: Normal Inspection, Full ROM - Chest Chest Inspection: Normal Inspection - Respiratory Respiratory Exam: Normal Lung Sounds Bilat Respiratory Exam: Bilateral Clear to Auscultation - Cardiovascular Cardiovascular Exam: Regular Rate, Normal Rhythm - Abdominal Exam Abdominal Exam: Normal Inspection, Normal Bowel Sounds Abdominal Tenderness: negative: RUQ, RLQ, LUQ, LLQ, Epigastrium, Suprapubic, Diffuse, Mild, Moderate, Severe, Other - Extremities Extremities Exam: Normal Inspection, Full ROM - Back Back Exam: Normal Inspection - Neurologic Neurological Exam: Alert, Oriented X3, CN II-XII Intact - Psychiatric Psychiatric Exam: Normal Affect, Normal Mood - Skin Skin Exam: Warm, Dry, Intact - Diagnosis Discharge Problem: Gingival hyperplasia, Geographic tongue - Discharge Plan Condition: Stable - Follow ups/Referrals Follow ups/Referrals: NFD,None [Primary Care Provider] - 3 days - Instructions
== END 2017-05-20 11:45 | disposition home or self-care (01) ==
LOC: ER 11:12
DX: K06.1 Gingival enlargement (principal); K14.1 Geographic tongue
CPT/HCPCS: 99281; 99282

== ENCOUNTER 2017-05-30 20:17 | Emergency (ER) | payer MEDICAID, OTHER ==
[2017-05-30 20:27] VITALS: BP 128/70; BMI 38.7
--- NOTE | 2017-05-31 11:17 | DR.GENAD ---
HPI - PCP Primary Care Physician: nfkimberly - Complaint/Symptoms Chief Complaint:: lower abd has been feeling tight for about 5 days pain on right lower side and hips for 5 days Self Treatment fo Chief Complaint: tylenol 2pm today and ibuprofen at 630 tonight - Source History Provided: Patient - Mode of Arrival Mode of Arrival: Ambulatory - Timing Onset of Chief Complaint: 05/25/17 PMH - PMH Past Medical History: Yes Past Medical History: Anxiety Past Medical History Comment: bells palsy,add Past Surgical History: No Surgical History: No History - Family History History of Family Medical Conditions: Yes Family Medical History: Diabetes Mellitus, Cancer, [place], Heart Failure, Sudden Cardiac , Hypertension - Social History Does patient currently use any type of tobacco product: Yes Have you used tobacco products in the last 12 months: Yes Type of Tobacco Use: Cigarettes Does any household member use tobacco: No Alcohol Use: None Do you use any recreational Drugs:: No Lives With: Significant Other - infectious screening In the last 2 months have you had wt loss of >10#?: NO Have you had fever, night sweats or hemotysis?: No Have you traveled outside the country in the last 6 months?: No Isolation: Standard PE - Vital Signs Vitals: Temperature 98.2 F Pulse Rate 97 Respiratory Rate 16 Blood Pressure 128/70 O2 Sat by Pulse Oximetry 96 - Discharge Plan Disposition: LWBS After Triage Condition: Stable - Follow ups/Referrals Follow ups/Referrals: ADELE,None [Primary Care Provider] - 3 days - Instructions
== END 2017-05-30 21:05 | disposition left against medical advice (07) ==
LOC: ER 20:17
DX: R10.84 Generalized abdominal pain (principal)
CPT/HCPCS: 99281

== ENCOUNTER 2017-05-31 16:38 | Emergency (ER) | payer OTHER ==
[2017-05-31 16:43] VITALS: BP 125/86; BMI 38.4
[2017-05-31 17:50] LABS: BILIRUBIN,URINE NEGATIVE (NEGATIVE); BLOOD/HEMOGLOBIN,URINE NEGATIVE (NEGATIVE); GLUCOSE, URINE NEGATIVE (NEGATIVE); KETONES,URINE NEGATIVE (NEGATIVE); LEUKOCYTE ESTERASE ,URINE NEGATIVE (NEGATIVE); NITRITES,URINE NEGATIVE (NEGATIVE); PROTEIN,URINE NEGATIVE (NEGATIVE); UROBILINOGEN,URINE NORMAL (NORMAL)
--- NOTE | 2017-05-31 17:50 | DR.GENAD ---
HPI - PCP Primary Care Physician: NFD - Complaint/Symptoms Chief Complaint Doctors Comments: Patient presents with complaint of LLQ pain for a couple of days. The pain is mild 6/10, sharp,not aggravated by anything. LMP 04/26/18. Chief Complaint:: LOWER PAIN ABD. PAIN FOR A FEW DAYS - Source History Provided: Patient - Mode of Arrival Mode of Arrival: Ambulatory - Timing Onset of Chief Complaint: 05/27/17 PMH - PMH Past Medical History: Yes Past Medical History: Anxiety Past Surgical History: No Surgical History: No History - Family History History of Family Medical Conditions: Yes Family Medical History: Diabetes Mellitus, Cancer, [place], Heart Failure, Sudden Cardiac , Hypertension - Social History Does patient currently use any type of tobacco product: Yes Have you used tobacco products in the last 12 months: Yes Type of Tobacco Use: Cigarettes Does any household member use tobacco: No Alcohol Use: None Do you use any recreational Drugs:: No Lives With: Family Lives Where: Home - infectious screening In the last 2 months have you had wt loss of >10#?: NO Have you had fever, night sweats or hemotysis?: No Have you traveled outside the country in the last 6 months?: No Isolation: Standard ROS - Review of Systems Eyes: No Symptoms Reported ENTM: No Symptoms Reported Respiratoy: No Symptoms Reported Cardiovascular: No Symptoms Reported Gastrointestinal/Abdominal: No Symptoms Reported Genitourinary: No Symptoms Reported Neurological: No Symptoms Reported Musculoskeletal: No Symptoms Reported Integumentary: No Symptoms Reported Hematologic/Lymphatic: No Symptoms Reported Endocrine: No Symptoms Reported Psychiatric: No Symptoms Reported All Other Systems: Reviewed and Negative PE - Vital Signs Vitals: Temperature 98.2 F Pulse Rate 107 Respiratory Rate 20 Blood Pressure 125/86 O2 Sat by Pulse Oximetry 98 - General Limitations: No Limitations General Appearance: Alert, In No Apparent Distress - Head Head Exam: Normal Inspection, Atraumatic - Eyes Eye exam: Normal Appearance, PERRL, EOMI - ENT ENT Exam: Normal Exam External Ear Exam: Normal External Inspection TM/Canal Exam: Bilateral Normal Nose Exam: Normal Nose Exam Mouth Exam: Normal Inspection Throat Exam: Normal Inspection - Neck Neck Exam: Normal Inspection, Full ROM - Chest Chest Inspection: Normal Inspection - Respiratory Respiratory Exam: Normal Lung Sounds Bilat Respiratory Exam: Bilateral Clear to Auscultation - Cardiovascular Cardiovascular Exam: Regular Rate - Abdominal Exam Abdominal Exam: Normal Inspection, Normal Bowel Sounds Abdominal Tenderness: LLQ - Extremities Extremities Exam: Normal Inspection, Full ROM - Back Back Exam: Normal Inspection, Full ROM - Neurologic Neurological Exam: Alert, Oriented X3, CN II-XII Intact - Psychiatric Psychiatric Exam: Normal Affect, Normal Mood - Skin Skin Exam: Warm, Dry, Intact ROR - Labs Reviewed Result Diagrams: 05/31/17 17:59 12 17:59 Laboratory: WBC 12.6 X10^3/uL (3.6-10.0) H 05/31/17 17:59 RBC 4.48 X10^6/uL (3.5-5.4) 05/31/17 17:59 Hgb 13.3 g/dL (12.0-16.0) 05/31/17 17:59 Hct 38.1 % (36.0-47.0) 05/31/17 17:59 MCV 85.1 fL (80.0-100.0) 05/31/17 17:59 MCH 29.6 pg (27.0-34.0) 05/31/17 17:59 MCHC 34.8 g/dL (33.0-35.0) 05/31/17 17:59 RDW 13.8 % (11.6-16.5) 05/31/17 17:59 Plt Count 368 X10^3/uL (150.0-450.0) 05/31/17 17:59 MPV 6.5 fL (7.4-11.0) L 05/31/17 17:59 Neut % 65.9 % (42.0-75.0) 05/31/17 17:59 Lymph % 24.0 % (21.0-51.0) 05/31/17 17:59 Mcdonald % 7.0 % (0.0-13.0) 05/31/17 17:59 Eos % 2.2 % (0.9-2.9) 05/31/17 17:59 Baso % 0.9 % (0.2-1.0) 05/31/17 17:59 Neut # 8.3 x10^3/uL (2.2-4.8) H 05/31/17 17:59 Lymph # 3.0 X10^3/uL (1.3-2.9) H 05/31/17 17:59 Mcdonald # 0.9 x10^3/uL (0.3-0.8) H 05/31/17 17:59 Eos # 0.3 x10^3/uL (0.0-0.2) H 05/31/17 17:59 Baso # 0.1 X10^3/uL (0.0-0.1) 05/31/17 17:59 Absolute Nucleated RBC 0.0 /100WBC 05/31/17 17:59 Sodium 141 mmol/L (136-145) 05/31/17 17:59 Corrected Sodium TNP 05/31/17 17:59 Potassium 4.2 mmol/L (3.5-5.1) 05/31/17 17:59 Chloride 105 mmol/L (98-107) 05/31/17 17:59 Carbon Dioxide 29.5 mmol/L (21-32) 05/31/17 17:59 BUN 12 mg/dL (7-18) 05/31/17 17:59 Creatinine 0.67 mg/dL (0.55-1.02) 05/31/17 17:59 Est GFR (MDRD) Af Amer > 60 (>60) 05/31/17 17:59 Est GFR (MDRD) Non-Af > 60 (>60) 05/31/17 17:59 Glucose 75 mg/dL (65-99) 05/31/17 17:59 Calcium 8.8 mg/dL (8.5-10.1) 05/31/17 17:59 HCG, Quant < 1 mIU/mL (0-6) 05/31/17 17:59 Specimen Type Clean catch urine 05/31/17 17:39 Urine Color Yellow (YELLOW) 05/31/17 17:39 Urine Appearance Clear (CLEAR) 05/31/17 17:39 Urine pH 7.0 (5.0 - 8.0) 05/31/17 17:39 Ur Specific [place] 1.010 (1.000-1.030) 05/31/17 17:39 Urine Protein Negative (NEGATIVE) 05/31/17 17:39 Urine Glucose (UA) Negative (NEGATIVE) 05/31/17 17:39 Urine Ketones Negative (NEGATIVE) 05/31/17 17:39 Urine Occult Blood Negative (NEGATIVE) 05/31/17 17:39 Urine Nitrite Negative (NEGATIVE) 05/31/17 17:39 Urine Bilirubin Negative (NEGATIVE) 05/31/17 17:39 Urine Urobilinogen Normal (NORMAL) 05/31/17 17:39 Ur Leukocyte Esterase Negative (NEGATIVE) 05/31/17 17:39 Urine RBC Negative /HPF (NEGATIVE) 05/31/17 17:39 Urine WBC Rare /HPF (NEGATIVE) 05/31/17 17:39 Ur Squamous Epith Cells Moderate /HPF (NEGATIVE) 05/31/17 17:39 Urine Bacteria Negative /HPF (NEGATIVE) 05/31/17 17:39 Ur Culture Indicated? No/not indicated 05/31/17 17:39 - Diagnosis Discharge Problem: Abdominal pain Qualifiers: Abdominal location: left lower quadrant Qualified Code(s): R10.32 - Left lower quadrant pain - Discharge Plan Condition: Stable - Follow ups/Referrals Follow ups/Referrals: NFD,None [Primary Care Provider] - 3 days - Instructions Instructions: Nausea, Adult
[2017-05-31 18:07] LABS: BASOPHILS # (AUTO) 0.1 X10^3/uL (0.0-0.1); BASOPHILS % (AUTO) 0.9 % (0.2-1.0); EOSINOPHILS # (AUTO) 0.3 x10^3/uL (0.0-0.2); EOSINOPHILS % (AUTO) 2.2 % (0.9-2.9); HEMATOCRIT 38.1 % (36.0-47.0); HEMOGLOBIN 13.3 g/dL (12.0-16.0); MEAN CORPUSCULAR HEMOGLOBIN 29.6 pg (27.0-34.0); MEAN CORPUSCULAR HGB CONC 34.8 g/dL (33.0-35.0); MEAN CORPUSCULAR VOLUME 85.1 fL (80.0-100.0); MEAN PLATELET VOLUME 6.5 fL (7.4-11.0); MONOCYTES # (AUTO) 0.9 x10^3/uL (0.3-0.8); NEUTROPHILS # (AUTO) 8.3 x10^3/uL (2.2-4.8); NEUTROPHILS % (AUTO) 65.9 % (42.0-75.0); PLATELET COUNT 368 X10^3/uL (150.0-450.0); RED BLOOD COUNT 4.48 X10^6/uL (3.5-5.4); RED CELL DISTRIBUTION WIDTH 13.8 % (11.6-16.5); WHITE BLOOD COUNT 12.6 X10^3/uL (3.6-10.0)
[2017-05-31 18:08] LABS: APPEARANCE,URINE CLEAR (CLEAR); BACTERIA,URINE NEGATIVE /HPF (NEGATIVE); COLOR,URINE YELLOW (YELLOW); RBC,URINE NEGATIVE /HPF (NEGATIVE); SQUAMOUS EPITHELIAL CELL,UR MODERATE /HPF (NEGATIVE)
[2017-05-31 18:13] LABS: BLOOD UREA NITROGEN 12 mg/dL (7-18); CALCIUM 8.8 mg/dL (8.5-10.1); CARBON DIOXIDE 29.5 mmol/L (21-32); CHLORIDE 105 mmol/L (98-107); CREATININE 0.67 mg/dL (0.55-1.02); SODIUM 141 mmol/L (136-145); eGFR BLACK RACES > 60 (>60); eGFR NON BLACK RACES > 60 (>60)
[2017-05-31 18:31] LABS: HCG,QUANTITATIVE < 1 mIU/mL (0-6)
== END 2017-05-31 18:53 | disposition home or self-care (01) ==
LOC: ER 16:48
DX: R10.32 Left lower quadrant pain (principal)
CPT/HCPCS: 36415; 80048; 81001; 84702; 85025; 99282

== ENCOUNTER 2017-06-14 14:50 | Emergency (ER) | payer OTHER ==
[2017-06-14 14:58] VITALS: BMI 38.4
--- NOTE | 2017-06-14 15:45 | DR.GENAD ---
HPI - PCP Primary Care Physician: ADELE - HPI Comment HPI Comment: PATIENT MISS HER PERIOD. LLQ PAIN. NO DYSURIA OR VAGINAL BLLEDING. NO FEVER. - Complaint/Symptoms Chief Complaint Doctors Comments: LLQ ABDOMEN PAIN. MISS PERIOD. Chief Complaint:: PT C/O LLQ PAIN THAT HAS BEEN GOING ON FOR A WEEK. PT DENIES ANY VAGINAL BLEEDING AND VAGINAL DISCHARGE. - Nurses notes reviewed Nurses Notes Review: Yes - Source History Provided: Patient - Mode of Arrival Mode of Arrival: Ambulatory - Timing Onset of Chief Complaint: 06/07/17 Came on: Suddenly - Duration Duration: Constant Duration: Days - Severity Severity: Moderate PMH - PMH Past Medical History: Yes Past Medical History: Anxiety Past Medical History Comment: BELLS PALSY, PCOS, AND ADD Past Surgical History: No Surgical History: No History - Family History History of Family Medical Conditions: Yes Family Medical History: Diabetes Mellitus, Cancer, [place], Heart Failure, Sudden Cardiac , Hypertension - Social History Does patient currently use any type of tobacco product: Yes Have you used tobacco products in the last 12 months: Yes Type of Tobacco Use: Cigarettes Does any household member use tobacco: Yes Alcohol Use: None Do you use any recreational Drugs:: No Lives With: Family Lives Where: Home - infectious screening In the last 2 months have you had wt loss of >10#?: NO Have you had fever, night sweats or hemotysis?: No Have you traveled outside the country in the last 6 months?: No Isolation: Standard ROS - Review of Systems Constitutional: No Symptoms Reported Eyes: No Symptoms Reported ENTM: No Symptoms Reported Respiratoy: No Symptoms Reported Cardiovascular: No Symptoms Reported Gastrointestinal/Abdominal: No Symptoms Reported, Abdominal Pain. negative: Diarrhea, Nausea, Vomiting Genitourinary: No Symptoms Reported Neurological: No Symptoms Reported Musculoskeletal: No Symptoms Reported Integumentary: No Symptoms Reported Hematologic/Lymphatic: No Symptoms Reported Endocrine: No Symptoms Reported All Other Systems: Reviewed and Negative PE - Vital Signs Vitals: Temperature 98.0 F Pulse Rate [Left Radial] 90 Pulse Rate 99 Respiratory Rate 18 Blood Pressure [Left Arm] 120/80 Blood Pressure 119/72 O2 Sat by Pulse Oximetry 100 - General Limitations: No Limitations General Appearance: Alert - Head Head Exam: Normal Inspection - Eyes Eye exam: Normal Appearance - ENT ENT Exam: Normal External Ear Exam External Ear Exam: Normal External Inspection TM/Canal Exam: Bilateral Normal Nose Exam: Normal Nose Exam Mouth Exam: Normal Inspection Throat Exam: Normal Inspection - Neck Neck Exam: Normal Inspection - Chest Chest Inspection: Symmetric Chest Wall Rise - Respiratory Respiratory Exam: Normal Lung Sounds Bilat Respiratory Exam: Bilateral Clear to Auscultation - Cardiovascular Cardiovascular Exam: Regular Rate, Normal Rhythm, Normal Heart Sounds - Abdominal Exam Abdominal Exam: Normal Bowel Sounds, Soft. negative: Tenderness - Extremities Extremities Exam: Normal Inspection - Back Back Exam: Normal Inspection - Neurologic Neurological Exam: Alert - Psychiatric Psychiatric Exam: Normal Affect, Normal Mood - Skin Skin Exam: Normal Color MDM - Differential Diagnosis Differential Diagnosis: MISS PERIOD, LLQ ABDOMINAL PAIN, ECTOPIC , UTI Course - Treatment Treatment: SEE ORDERS. - Education/Counseling Education/Counseling: Patient, Education Educated On: Diagnosis, Needs for Follow Up ROR - Labs Reviewed Laboratory Results Reviewed?: Yes Result Diagrams: 06/14/17 15:58 06/14/17 15:58 Laboratory: WBC 8.2 X10^3/uL (3.6-10.0) 06/14/17 15:58 RBC 4.74 X10^6/uL (3.5-5.4) 06/14/17 15:58 Hgb 14.1 g/dL (12.0-16.0) 06/14/17 15:58 Hct 40.3 % (36.0-47.0) 06/14/17 15:58 MCV 84.9 fL (80.0-100.0) 06/14/17 15:58 MCH 29.6 pg (27.0-34.0) 06/14/17 15:58 MCHC 34.9 g/dL (33.0-35.0) 06/14/17 15:58 RDW 13.6 % (11.6-16.5) 06/14/17 15:58 Plt Count 397 X10^3/uL (150.0-450.0) 06/14/17 15:58 MPV 6.5 fL (7.4-11.0) L 06/14/17 15:58 Neut % 60.4 % (42.0-75.0) 06/14/17 15:58 Lymph % 29.2 % (21.0-51.0) 06/14/17 15:58 [place] % 6.4 % (0.0-13.0) 06/14/17 15:58 Eos % 3.0 % (0.9-2.9) H 06/14/17 15:58 Baso % 1.0 % (0.2-1.0) 06/14/17 15:58 Neut # 4.9 x10^3/uL (2.2-4.8) H 06/14/17 15:58 Lymph # 2.4 X10^3/uL (1.3-2.9) 06/14/17 15:58 [place] # 0.5 x10^3/uL (0.3-0.8) 06/14/17 15:58 Eos # 0.2 x10^3/uL (0.0-0.2) 06/14/17 15:58 Baso # 0.1 X10^3/uL (0.0-0.1) 06/14/17 15:58 Absolute Nucleated RBC 0.0 /100WBC 06/14/17 15:58 Sodium 142 mmol/L (136-145) 06/14/17 15:58 Corrected Sodium TNP 06/14/17 15:58 Potassium 4.0 mmol/L (3.5-5.1) 06/14/17 15:58 Chloride 107 mmol/L (98-107) 06/14/17 15:58 Carbon Dioxide 27.5 mmol/L (21-32) 06/14/17 15:58 BUN 7 mg/dL (7-18) 06/14/17 15:58 Creatinine 0.63 mg/dL (0.55-1.02) 06/14/17 15:58 Est GFR (MDRD) Af Amer > 60 (>60) 06/14/17 15:58 Est GFR (MDRD) Non-Af > 60 (>60) 06/14/17 15:58 Glucose 81 mg/dL (65-99) 06/14/17 15:58 Calcium 8.9 mg/dL (8.5-10.1) 06/14/17 15:58 Corrected Calcium 9.5 mg/dL (8.5-10.1) 06/14/17 15:58 Total Bilirubin 0.80 mg/dL (0.2-1.0) 06/14/17 15:58 AST 16 Units/L (15-37) 06/14/17 15:58 ALT 25 Units/L (12-78) 06/14/17 15:58 Alkaline Phosphatase 89 Units/L (46-116) 06/14/17 15:58 Total Protein 7.4 g/dL (6.4-8.2) 06/14/17 15:58 Albumin 3.2 g/dL (3.4-5.0) L 06/14/17 15:58 Globulin 4.2 g/dL (2.5-4.5) 06/14/17 15:58 Albumin/Globulin Ratio 0.8 Ratio (1.1-2.1) L 06/14/17 15:58 HCG, Qual Positive >10 mIU/mL 06/14/17 15:58 HCG, Quant 28 mIU/mL (0-6) H 06/14/17 15:46 Specimen Type Clean catch urine 06/14/17 15:37 Urine Color Yellow (YELLOW) 06/14/17 15:37 Urine Appearance Clear (CLEAR) 06/14/17 15:37 Urine pH 6.0 (5.0 - 8.0) 06/14/17 15:37 Ur Specific [place] 1.015 (1.000-1.030) 06/14/17 15:37 Urine Protein Negative (NEGATIVE) 06/14/17 15:37 Urine Glucose (UA) Negative (NEGATIVE) 06/14/17 15:37 Urine Ketones Negative (NEGATIVE) 06/14/17 15:37 Urine Occult Blood 1+ (NEGATIVE) 06/14/17 15:37 Urine Nitrite Negative (NEGATIVE) 06/14/17 15:37 Urine Bilirubin Negative (NEGATIVE) 06/14/17 15:37 Urine Urobilinogen Normal (NORMAL) 06/14/17 15:37 Ur Leukocyte Esterase 1+ (NEGATIVE) 06/14/17 15:37 Urine RBC 0-5 /HPF (NEGATIVE) 06/14/17 15:37 Urine WBC 0-5 /HPF (NEGATIVE) 06/14/17 15:37 Ur Squamous Epith Cells Moderate /HPF (NEGATIVE) 06/14/17 15:37 Urine Bacteria Negative /HPF (NEGATIVE) 06/14/17 15:37 Ur Culture Indicated? No/not indicated 06/14/17 15:37 - XRAY XRAY Interpreted by: Radiologist XRAY Findings: REPORT DISCUSS WITH PATIENT. - Diagnosis Discharge Problem: Abdominal pain affecting Abdominal pain Qualifiers: Abdominal location: left lower quadrant Qualified Code(s): R10.32 - Left lower quadrant pain - Discharge Plan Disposition: 01 HOME, SELF-CARE Condition: Stable - Follow ups/Referrals Follow ups/Referrals: NFD,None [Primary Care Provider] - 3 days COLLINS PRUITT [STAFF PHYSICIAN] - 3 days - Instructions Instructions: Abdominal Pain During , [id number], Pelvic Rest Additional Instructions: RETURN TO ED IF WORSE.
[2017-06-14 16:00] LABS: BILIRUBIN,URINE NEGATIVE (NEGATIVE); BLOOD/HEMOGLOBIN,URINE 1+ (NEGATIVE); GLUCOSE, URINE NEGATIVE (NEGATIVE); KETONES,URINE NEGATIVE (NEGATIVE); LEUKOCYTE ESTERASE ,URINE 1+ (NEGATIVE); NITRITES,URINE NEGATIVE (NEGATIVE); PROTEIN,URINE NEGATIVE (NEGATIVE); UROBILINOGEN,URINE NORMAL (NORMAL)
[2017-06-14 16:05] LABS: BASOPHILS # (AUTO) 0.1 X10^3/uL (0.0-0.1); EOSINOPHILS # (AUTO) 0.2 x10^3/uL (0.0-0.2); HEMATOCRIT 40.3 % (36.0-47.0); HEMOGLOBIN 14.1 g/dL (12.0-16.0); LYMPHOCYTES # (AUTO) 2.4 X10^3/uL (1.3-2.9); LYMPHOCYTES % (AUTO) 29.2 % (21.0-51.0); MEAN CORPUSCULAR HEMOGLOBIN 29.6 pg (27.0-34.0); MEAN CORPUSCULAR HGB CONC 34.9 g/dL (33.0-35.0); MEAN CORPUSCULAR VOLUME 84.9 fL (80.0-100.0); MEAN PLATELET VOLUME 6.5 fL (7.4-11.0); MONOCYTES # (AUTO) 0.5 x10^3/uL (0.3-0.8); MONOCYTES % (AUTO) 6.4 % (0.0-13.0); NEUTROPHILS # (AUTO) 4.9 x10^3/uL (2.2-4.8); NEUTROPHILS % (AUTO) 60.4 % (42.0-75.0); PLATELET COUNT 397 X10^3/uL (150.0-450.0); RED BLOOD COUNT 4.74 X10^6/uL (3.5-5.4); RED CELL DISTRIBUTION WIDTH 13.6 % (11.6-16.5); WHITE BLOOD COUNT 8.2 X10^3/uL (3.6-10.0)
[2017-06-14 16:13] LABS: APPEARANCE,URINE CLEAR (CLEAR); BACTERIA,URINE NEGATIVE /HPF (NEGATIVE); COLOR,URINE YELLOW (YELLOW); RBC,URINE 0-5 /HPF (NEGATIVE); SQUAMOUS EPITHELIAL CELL,UR MODERATE /HPF (NEGATIVE)
[2017-06-14 16:18] LABS: SERUM PREGNANCY TEST, QUAL POSITIVE >10 mIU/mL
[2017-06-14 16:20] LABS: ALANINE AMINOTRANSFERASE 25 Units/L (12-78); ALBUMIN 3.2 g/dL (3.4-5.0); ALKALINE PHOSPHATASE 89 Units/L (46-116); ASPARTATE AMINO TRANSFERASE 16 Units/L (15-37); BLOOD UREA NITROGEN 7 mg/dL (7-18); CALCIUM 8.9 mg/dL (8.5-10.1); CARBON DIOXIDE 27.5 mmol/L (21-32); CHLORIDE 107 mmol/L (98-107); COR CA(FOR HYPOALB) 9.5 mg/dL (8.5-10.1); CREATININE 0.63 mg/dL (0.55-1.02); SODIUM 142 mmol/L (136-145); TOTAL PROTEIN 7.4 g/dL (6.4-8.2); eGFR BLACK RACES > 60 (>60); eGFR NON BLACK RACES > 60 (>60)
--- NOTE | 2017-06-14 18:37 | US ---
HISTORY: Pelvic pain in early Study: Ob ultrasound Comparison: None Technique: Multiple grayscale and color flow images of the pelvis were obtained. Findings: No intrauterine gestational sac is identified. The endometrium is mildly thickened, measuring 10 mm. The uterus measures 5.3 cm in length by 3.9 cm in height by 4.6 cm in width. The right ovary is cassie l in echotexture and size, measuring 2.2 cm x 1.7 cm x 2.7 cm. The left ovary is normal in echotextur e and size, measuring 2.2 cm x 2.3 cm x 3.1 cm. No pelvic free fluid is identified. No adnexal mass i s visualized. IMPRESSION: 1. Mildly thickened endometrium without intrauterine gestational sac. Given a quantitative beta HCG o f 28, these findings could represent a very early with an intrauterine gestational sac not yet identifiable. However, a failed 1st trimester could have this appearance as well. No ad nexal mass is identified to suggest ectopic . However, close clinical, serological, and sono graphic follow-up is recommended. Reported By:
[2017-06-14 19:26] VITALS: BP 120/80
== END 2017-06-14 19:20 | disposition home or self-care (01) ==
LOC: ER 15:03
DX: R10.32 Left lower quadrant pain (principal); Z3A.00 Weeks of gestation of pregnancy not specified
CPT/HCPCS: 36415; 76801; 80053; 81001; 84702; 84703; 85025; 99282

== ENCOUNTER 2017-06-16 11:20 | Emergency (ER) | payer OTHER ==
[2017-06-16 11:34] VITALS: BP 134/88; BMI 38.0
[2017-06-16] MEDS ORDERED: TYLENOL 500 MG TAB EXTRA STRENGTH PO ONE ×2 (12:12→12:22)
--- NOTE | 2017-06-16 12:12 | DR.GENAD ---
HPI - PCP Primary Care Physician: SONAL STEIN - HPI Comment HPI Comment: NO DYSURIA. - Complaint/Symptoms Chief Complaint Doctors Comments: PATIENT IN VERY EARLY STAGE, HCG 28 2 DAYS AGO. HAVING ABDOMINAL PAIN AND VAGINAL BLEEDING. Chief Complaint:: PT C/O WAKING UP THIS AM WITH C/O VAGINAL BLEEDING AND CRAMPING,, PT LAST PERIOD Apr,,, PT HAS A FLU WITH OBGYN IN THE AM AND PT THINKS SHE MAY BE HAVING A MISSCARRIAGE. Self Treatment fo Chief Complaint: PT C/O WIPING AND SEEING BRIGHT RED THAN IT INCREASED TO DARK RED AND SHE GOT WORRIED .,,BR - Nurses notes reviewed Nurses Notes Review: Yes - Source History Provided: Patient, Parent - Mode of Arrival Mode of Arrival: Ambulatory - Timing Onset of Chief Complaint: 06/16/17 Came on: Suddenly - Duration Duration: Constant Duration: Hours - Severity Severity: Moderate PMH - PMH Past Medical History: No Past Medical History: Anxiety Past Surgical History: No Surgical History: No History - Family History History of Family Medical Conditions: No Family Medical History: Diabetes Mellitus, Cancer, [place], Heart Failure, Sudden Cardiac , Hypertension - Social History Does patient currently use any type of tobacco product: Yes Have you used tobacco products in the last 12 months: Yes Type of Tobacco Use: Cigarettes How many years tobacco product used: 2 Does any household member use tobacco: No Alcohol Use: None Do you use any recreational Drugs:: No Lives With: Family Lives Where: Home - infectious screening In the last 2 months have you had wt loss of >10#?: NO Have you had fever, night sweats or hemotysis?: No Have you traveled outside the country in the last 6 months?: No Isolation: Standard ROS - Review of Systems Constitutional: No Symptoms Reported Eyes: No Symptoms Reported ENTM: No Symptoms Reported Respiratoy: No Symptoms Reported Cardiovascular: No Symptoms Reported Gastrointestinal/Abdominal: Abdominal Pain, Nausea. negative: Diarrhea, Vomiting Genitourinary: negative: Dysuria, Frequency, Hematuria Neurological: No Symptoms Reported Musculoskeletal: No Symptoms Reported Integumentary: No Symptoms Reported Hematologic/Lymphatic: No Symptoms Reported Endocrine: No Symptoms Reported All Other Systems: Reviewed and Negative PE - Vital Signs Vitals: Temperature 97.4 F Pulse Rate 80 Respiratory Rate 18 Blood Pressure [Left Arm] 120/80 Blood Pressure 134/88 O2 Sat by Pulse Oximetry 97 - General Limitations: No Limitations General Appearance: Alert - Head Head Exam: Normal Inspection - Eyes Eye exam: Normal Appearance - ENT ENT Exam: Normal External Ear Exam External Ear Exam: Normal External Inspection TM/Canal Exam: Bilateral Normal Mouth Exam: Normal Inspection Throat Exam: Normal Inspection - Neck Neck Exam: Normal Inspection - Chest Chest Inspection: Symmetric Chest Wall Rise - Respiratory Respiratory Exam: Normal Lung Sounds Bilat, Prolonged Expiratory Phase - Cardiovascular Cardiovascular Exam: Regular Rate, Normal Rhythm, Normal Heart Sounds - Abdominal Exam Abdominal Exam: Normal Bowel Sounds, Soft, Tenderness Abdominal Tenderness: RLQ, LLQ, Suprapubic, Moderate - Extremities Extremities Exam: Normal Inspection - Back Back Exam: Normal Inspection - Neurologic Neurological Exam: Alert, Oriented X3 - Psychiatric Psychiatric Exam: Anxious - Skin Skin Exam: Normal Color MDM - Additional Information Additional Information Obtained From: Family - Differential Diagnosis Differential Diagnosis: ABDOMINAL PAIN, VAGINAL BLEEDING, Course - Treatment Treatment: SEE ORDERS. - Education/Counseling Education/Counseling: Patient, Education Educated On: Treatment, Diagnosis, Needs for Follow Up ROR - Labs Reviewed Laboratory Results Reviewed?: Yes Laboratory: HCG, Quant 24 mIU/mL (0-6) H 06/16/17 12:20 - Diagnosis Discharge Problem: Vaginal bleeding before 22 weeks gestation, Abdominal pain affecting , Threatened miscarriage - Discharge Plan Disposition: HOME, SELF-CARE Condition: Stable - Follow ups/Referrals Follow ups/Referrals: NFD,None [Primary Care Provider] - 3 days - Instructions Instructions: Miscarriage, [id number], Abdominal Pain During , Easy- to-Read, Vaginal Bleeding During , First Trimester Additional Instructions: RETURN TO ED IF WORSE.
== END 2017-06-16 13:11 | disposition home or self-care (01) ==
LOC: ER 11:38
DX: O20.8 Other hemorrhage in early pregnancy (principal); R10.84 Generalized abdominal pain; O20.0 Threatened abortion; Z3A.00 Weeks of gestation of pregnancy not specified
CPT/HCPCS: 36415; 84702; 99283; 99284

== ENCOUNTER 2017-07-27 17:23 | Emergency (ER) | payer OTHER ==
[2017-07-27 17:32] VITALS: BP 135/78; BMI 38.4
--- NOTE | 2017-07-27 18:18 | DR.GENAD ---
HPI - PCP Primary Care Physician: pruitt - Complaint/Symptoms Chief Complaint Doctors Comments: Patient is concerned that she might be . Had miscarrage on Jun comlaining of abdominal cramping. She is a Chief Complaint:: pt stated she had a miscarriage last month, she has not had her menstural cycle this month. she has been nauseated and having lower abd pain for 4 days - Source History Provided: Patient - Mode of Arrival Mode of Arrival: Ambulatory - Timing Onset of Chief Complaint: 07/23/17 PMH - PMH Past Medical History: Yes Past Medical History: Anxiety Past Medical History Comment: pt stated she had insulin resistance Past Surgical History: No Surgical History: No History - Family History History of Family Medical Conditions: Yes Family Medical History: [place] - Social History Does patient currently use any type of tobacco product: Yes Have you used tobacco products in the last 12 months: Yes Type of Tobacco Use: Cigarettes How many years tobacco product used: 2 Does any household member use tobacco: Yes Alcohol Use: None Do you use any recreational Drugs:: No Lives With: Family Lives Where: Home - infectious screening In the last 2 months have you had wt loss of >10#?: NO Have you had fever, night sweats or hemotysis?: No Have you traveled outside the country in the last 6 months?: No Isolation: Standard ROS - Review of Systems Eyes: No Symptoms Reported ENTM: No Symptoms Reported Respiratoy: No Symptoms Reported Cardiovascular: No Symptoms Reported Gastrointestinal/Abdominal: No Symptoms Reported Genitourinary: No Symptoms Reported Neurological: No Symptoms Reported Musculoskeletal: No Symptoms Reported Integumentary: No Symptoms Reported Hematologic/Lymphatic: No Symptoms Reported Endocrine: No Symptoms Reported Psychiatric: No Symptoms Reported All Other Systems: Reviewed and Negative PE - Vital Signs Vitals: Temperature 98.6 F Pulse Rate 98 Respiratory Rate 16 Blood Pressure [Left Arm] 120/80 Blood Pressure 135/78 O2 Sat by Pulse Oximetry 98 - General General Appearance: Alert, In No Apparent Distress - Head Head Exam: Normal Inspection, Atraumatic - Eyes Eye exam: Normal Appearance, PERRL, EOMI - ENT ENT Exam: Normal Exam External Ear Exam: Normal External Inspection TM/Canal Exam: Bilateral Normal Nose Exam: Normal Nose Exam Mouth Exam: Normal Inspection Throat Exam: Normal Inspection, Tonsillar Erythema - Neck Neck Exam: Normal Inspection, Full ROM - Chest Chest Inspection: Normal Inspection - Respiratory Respiratory Exam: Normal Lung Sounds Bilat Respiratory Exam: Bilateral Clear to Auscultation - Cardiovascular Cardiovascular Exam: Regular Rate, Normal Rhythm - Abdominal Exam Abdominal Exam: Normal Inspection Abdominal Tenderness: negative: RUQ, RLQ, LUQ, LLQ, Epigastrium, Suprapubic, Diffuse, Mild, Moderate, Severe, Other - Extremities Extremities Exam: Normal Inspection, Full ROM - Back Back Exam: Normal Inspection, Full ROM - Neurologic Neurological Exam: Alert, Oriented X3, CN II-XII Intact - Psychiatric Psychiatric Exam: Normal Affect - Skin Skin Exam: Warm, Dry, Intact ROR - Labs Reviewed Laboratory Results Reviewed?: Yes (HCG negative) Laboratory: HCG, Qual Negative <10 mIU/mL 07/27/17 18:25 - Diagnosis Discharge Problem: Negative test Abdominal pain Qualifiers: Abdominal location: lower abdomen, unspecified Qualified Code(s): R10.30 - Lower abdominal pain, unspecified - Discharge Plan Condition: Stable - Follow ups/Referrals Follow ups/Referrals: COLLINS PRUITT [Primary Care Provider] - 3 days - Instructions
[2017-07-27 18:55] LABS: SERUM PREGNANCY TEST, QUAL NEGATIVE <10 mIU/mL
== END 2017-07-27 19:49 | disposition home or self-care (01) ==
LOC: ER 17:36
DX: R10.84 Generalized abdominal pain (principal); Z32.02 Encounter for pregnancy test, result negative
CPT/HCPCS: 36415; 84703; 99282

== ENCOUNTER 2017-08-14 18:03 | Emergency (ER) | payer OTHER ==
[2017-08-14 18:06] VITALS: BP 124/94; BMI 38.4
--- NOTE | 2017-08-14 19:44 | DR.GENAD ---
HPI - PCP Primary Care Physician: NFD - Complaint/Symptoms Chief Complaint Doctors Comments: Patient is complaining of severe sinus problems with nasal congestion, diarrhea x1 for the past 12 hours getting worst States her last period was 08/07/17. States she is sexually active and does not know if she is . She denies fever, chills, cold, or cough. States she tried OTC sinus medicines but it did not help. She denies any recent trauma Chief Complaint:: PT. C/O HEADACHE, NAUSEA, DIARRHEA, AND STUFFY NOSE THAT BEGAN THIS MORNING. - Nurses notes reviewed Nurses Notes Review: Yes - Source History Provided: Patient - Mode of Arrival Mode of Arrival: Ambulatory - Timing Onset of Chief Complaint: 08/14/17 Came on: Suddenly - Duration Duration: Constant How lon Duration: Days - Location Location: nasal congestion - Severity Severity: Mild - Modifying Factors Worsens:: nothing Improves:: nothing PMH - PMH Past Medical History: Yes Past Medical History: Anxiety Past Surgical History: No Surgical History: No History - Family History History of Family Medical Conditions: Yes Family Medical History: [place] - Social History Does patient currently use any type of tobacco product: Yes Have you used tobacco products in the last 12 months: Yes Type of Tobacco Use: Cigarettes Does any household member use tobacco: No Alcohol Use: None Do you use any recreational Drugs:: No Lives With: Spouse Lives Where: Home - infectious screening In the last 2 months have you had wt loss of >10#?: NO Have you had fever, night sweats or hemotysis?: No Have you traveled outside the country in the last 6 months?: No Isolation: Standard ROS - Review of Systems Constitutional: No Symptoms Reported. negative: See HPI, Chills, Diaphoresis, Fever, Malaise, Weakness, Irritable, Fatigue, Loss of Appetite, Other Eyes: No Symptoms Reported ENTM: No Symptoms Reported, Nose Discharge, Nose Congestion. negative: See HPI , Ear Pain, Ear Discharge, Pulling on Ears, Hearing Loss, Nose Pain, Epistaxis, Mouth Pain, Mouth Swelling, Loose Teeth, Drooling, Throat Pain, Throat Swelling , Ear Foreign Body Respiratoy: No Symptoms Reported. negative: See HPI, Productive Cough, Non- Productive Cough, Moist Cough, Dry Cough, Hacking Cough, Barking Cough, Brassy Cough, Orthopnea, Short of Breath, Stridor, Wheezing, Hemoptysis, Other Cardiovascular: No Symptoms Reported Gastrointestinal/Abdominal: No Symptoms Reported. negative: See HPI, Abdominal Pain, Constipation, Diarrhea, Nausea, Vomiting, Food Intolerance, Other Genitourinary: No Symptoms Reported Neurological: No Symptoms Reported. negative: See HPI, Anxiety, Depressed, Emotional Problems, Headache, Numbness, Paresthesia, Pre-existing Deficit, Seizure, Tingling, Tremors, Weakness, Dizziness, Problems Walking, Speech Problem, Other Musculoskeletal: No Symptoms Reported Integumentary: No Symptoms Reported. negative: See HPI, Change in Color, Change in Hair/Nails, Dryness, Lesions, Lumps, Rash, Itching, Wound, Bruises, Juandice, Other Hematologic/Lymphatic: No Symptoms Reported Endocrine: No Symptoms Reported Psychiatric: No Symptoms Reported. negative: See HPI, Anxiety, Depression, Hallucinations, Excessive crying, Suicidal, Other PE - Vital Signs Vitals: Temperature 98.8 F Pulse Rate 87 Respiratory Rate 17 Blood Pressure [Left Arm] 120/80 Blood Pressure 124/94 O2 Sat by Pulse Oximetry 96 - General Limitations: No Limitations General Appearance: Alert, In No Apparent Distress. negative: Appears Intoxicated, Anxious, Lethargic, Obtunded, In Distress, Obese, Cachectic, Other - Head Head Exam: Normal Inspection, Atraumatic, Normocephalic - Eyes Eye exam: Normal Appearance, PERRL, EOMI. negative: Scleral Icterus, Conjunctival Injection, Nystagmus, Miosis, Mydrasis, Periorbital Swelling, Periorbital Tenderness, Other - ENT ENT Exam: Normal Exam, Normal Oropharynx, Normal External Ear Exam, Mucous Membranes Moist, TM's Normal Bilaterally External Ear Exam: Normal External Inspection TM/Canal Exam: Bilateral Normal Mouth Exam: Normal Inspection. negative: Drooling, Trismus, Lip Swelling, Tongue Elevation, Tongue Swelling, Laceration, Other Throat Exam: Normal Inspection - Neck Neck Exam: Normal Inspection, Full ROM, Trachea Midline - Chest Chest Inspection: Normal Inspection, Symmetric Chest Wall Rise - Respiratory Respiratory Exam: Normal Lung Sounds Bilat Respiratory Exam: Bilateral Clear to Auscultation, Bilateral Wheezing - Cardiovascular Cardiovascular Exam: Regular Rate, Normal Rhythm, Normal Heart Sounds - Abdominal Exam Abdominal Exam: Normal Inspection, Normal Bowel Sounds, Soft. negative: Distention, Tenderness, Guarding, Rebound, Rigidity, Dimnished Bowel Sounds, Hyperactive Bowel Sounds, Hypoactive Bowel Sounds, Organomegaly, Trauma, Incision, Ascites, Mass, Bruit, Pulsatile Mass, Hernia, Other Abdominal Tenderness: negative: RUQ, RLQ, LUQ, LLQ, Epigastrium, Suprapubic, Diffuse, Mild, Moderate, Severe, Other - Extremities Extremities Exam: Normal Inspection, Full ROM, Tenderness, Normal Capillary Refill, Joint Swelling - Back Back Exam: Normal Inspection, Full ROM. negative: Tenderness, (R) CVA Tenderness, (L) CVA Tenderness, Muscle Spasm, Paraspinal Tenderness, Vertebral Tenderness, Rashes, (R) Sciatic Notch Tenderness, (L) Sciatic Notch Tendern, (R ) Straight Leg Raise, (L) Straight Leg Raise, Other - Neurologic Neurological Exam: Alert, Oriented X3, CN II-XII Intact, Normal Gait, Reflexes Normal - Psychiatric Psychiatric Exam: Normal Affect - Skin Skin Exam: Warm, Dry, Intact, Normal Color. negative: Rash, Cyanosis, Diaphoresis, Erythema, Pallor, Mottled, Other ROR - Labs Reviewed Laboratory Results Reviewed?: Yes (all labs results reviewed and discussed with patient) Laboratory: HCG, Qual Negative <10 mIU/mL 08/14/17 19:55 - Diagnosis Discharge Problem: Headache Sinusitis, acute ethmoidal Qualifiers: Recurrence: recurrent Qualified Code(s): J01.21 - Acute recurrent ethmoidal sinusitis - Discharge Plan Disposition: HOME, SELF-CARE Condition: Stable Prescriptions: Ciprofloxacin HCl [CIPRO 500 MG TAB *] 500 mg PO Q12H #20 tab Fluticasone Nasal [place] [FLONASE NASAL SPRAY *] 2 sprays ENOSTRIL DAILY #1 each Ibuprofen [MOTRIN TAB 800 MG *] 800 mg PO BID PRN #60 tab PRN Reason: Pain/Inflammation Loratadine [Claritin] 10 mg PO DAILY #30 tab - Follow ups/Referrals Follow ups/Referrals: ADELE,Clarita [Primary Care Provider] - 3 days TANYA BISWAS [STAFF PHYSICIAN] - 3 days - Instructions Instructions: Sinus Headache, [id number], Sinusitis, Adult, [id number]
[2017-08-14 20:15] LABS: SERUM PREGNANCY TEST, QUAL NEGATIVE <10 mIU/mL
[2017-08-14] MEDS ORDERED: CIPRO TAB 500 MG PO ONE ×2 (20:29→20:33)
[2017-08-14] MEDS ORDERED: MOTRIN TAB 800 MG PO STA (20:30)
[2017-08-14] MEDS ORDERED: BENADRYL CAP 50 MG PO ONE (20:30)
[2017-08-14] MEDS ORDERED: MOTRIN TAB 800 MG PO ONE (20:33)
[2017-08-14] MEDS ORDERED: BENADRYL CAP/TAB 25 MG PO ONE ×2 (20:33→20:34)
== END 2017-08-14 20:40 | disposition home or self-care (01) ==
LOC: ER 18:09
DX: J01.80 Other acute sinusitis (principal); R51 Headache
CPT/HCPCS: 36415; 84703; 99282

== ENCOUNTER 2018-05-08 05:53 | Inpatient (IN) ==
[2018-05-08 06:23] LABS: BASOPHILS # (AUTO) 0.1 X10^3/uL (0.0-0.1); BASOPHILS % (AUTO) 0.6 % (0.2-1.0); EOSINOPHILS # (AUTO) 0.2 x10^3/uL (0.0-0.2); EOSINOPHILS % (AUTO) 1.3 % (0.9-2.9); HEMATOCRIT 37.6 % (36.0-47.0); LYMPHOCYTES # (AUTO) 2.2 X10^3/uL (1.3-2.9); LYMPHOCYTES % (AUTO) 17.5 % (21.0-51.0); MEAN CORPUSCULAR HEMOGLOBIN 28.9 pg (27.0-34.0); MEAN CORPUSCULAR HGB CONC 34.5 g/dL (33.0-35.0); MEAN CORPUSCULAR VOLUME 83.8 fL (80.0-100.0); MEAN PLATELET VOLUME 7.3 fL (7.4-11.0); MONOCYTES # (AUTO) 0.6 x10^3/uL (0.3-0.8); NEUTROPHILS # (AUTO) 9.7 x10^3/uL (2.2-4.8); NEUTROPHILS % (AUTO) 75.6 % (42.0-75.0); PLATELET COUNT 347 X10^3/uL (150.0-450.0); RED BLOOD COUNT 4.49 X10^6/uL (3.5-5.4); RED CELL DISTRIBUTION WIDTH 15.5 % (11.6-16.5); WHITE BLOOD COUNT 12.8 X10^3/uL (3.6-10.0)
[2018-05-08 06:24] LABS: BILIRUBIN,URINE NEGATIVE (NEGATIVE); BLOOD/HEMOGLOBIN,URINE NEGATIVE (NEGATIVE); GLUCOSE, URINE NEGATIVE (NEGATIVE); KETONES,URINE NEGATIVE (NEGATIVE); LEUKOCYTE ESTERASE ,URINE 2+ (NEGATIVE); NITRITES,URINE NEGATIVE (NEGATIVE); PROTEIN,URINE NEGATIVE (NEGATIVE); UROBILINOGEN,URINE NORMAL (NORMAL)
[2018-05-08 06:25] VITALS: BMI 46.4
[2018-05-08 06:30] LABS: COLOR,URINE YELLOW (YELLOW)
[2018-05-08] MEDS ORDERED: NS 1000 ML 1,000 ML IV ONE (06:30)
[2018-05-08 06:31] LABS: APPEARANCE,URINE CLEAR (CLEAR)
[2018-05-08 06:36] LABS: ALANINE AMINOTRANSFERASE 16 Units/L (12-78); ALBUMIN 2.1 g/dL (3.4-5.0); ALKALINE PHOSPHATASE 168 Units/L (46-116); ASPARTATE AMINO TRANSFERASE 20 Units/L (15-37); BLOOD UREA NITROGEN 8 mg/dL (7-18); CALCIUM 8.3 mg/dL (8.5-10.1); CARBON DIOXIDE 20.9 mmol/L (21-32); CHLORIDE 104 mmol/L (98-107); COR CA(FOR HYPOALB) 9.8 mg/dL (8.5-10.1); CREATININE 0.49 mg/dL (0.55-1.02); SODIUM 137 mmol/L (136-145); TOTAL PROTEIN 6.8 g/dL (6.4-8.2); eGFR NON BLACK RACES > 60 (>60)
[2018-05-08 06:43] LABS: RBC,URINE 0-2 /HPF (NONE SEEN); SQUAMOUS EPITHELIAL CELL,UR MANY /HPF (NEGATIVE)
[2018-05-08 06:44] LABS: AMORPHOUS SEDIMENT,UR 1+ /HPF (NEGATIVE); BACTERIA,URINE TRACE /HPF (NEGATIVE)
[2018-05-08 06:46] LABS: AMNISURE ROM TEST NO MEMBRANES RUPTURE (NO RUPTURE)
[2018-05-08] MEDS ORDERED: PITOCIN IVP ONE (07:04)
[2018-05-08] MEDS ORDERED: LR 1000 ML IV 1,000 ML IV ONE (07:24)
[2018-05-08] MEDS ORDERED: D5 1/2 NS 1L W PITOCIN 20 UNITS/L 20 UNITS/1,000 ML BAG IV ONE (07:24)
[2018-05-08] MEDS ORDERED: D5LR 1L W PITOCIN 10 UNITS/L 10 UNITS/1,000 ML BAG IV ONE ×2 (07:24→15:58)
[2018-05-08] MEDS ORDERED: PITOCIN ONE ×2 (07:24→15:50)
[2018-05-08] MEDS: D5 1/2 NS 1000 ML 1,000 ML IV ONE ×2 (07:25→11:10)
[2018-05-08] MEDS: D5 1/2 NS 1000 ML 1,000 ML IV SCH (07:25)
[2018-05-08] MEDS: D5LR 1L W PITOCIN 10 UNITS/L 10 UNITS/1,000 ML BAG IV PRN ×2 (07:30→18:00)
[2018-05-08] MEDS ORDERED: NUBAIN INJ 10 ONE ×6 (09:22→20:09)
[2018-05-08] MEDS ORDERED: REGLAN INJ 10 MG VIAL ONE ×2 (10:02→18:50)
[2018-05-08] MEDS: NUBAIN INJ 200 MG VIAL MULTIDOSE IVP PRN ×5 (11:39→20:10)
[2018-05-08] MEDS ORDERED: DIPRIVAN VIAL ONE (15:50)
[2018-05-08] MEDS ORDERED: VERSED ONE (15:50)
[2018-05-08] MEDS: REGLAN INJ 10 MG VIAL IVP PRN (18:52)
[2018-05-08] MEDS ORDERED: XYLOCAINE-MPF 1% ONE (21:07)
[2018-05-08] MEDS ORDERED: XYLOCAINE 1 % (PLAIN) ONE (21:07)
[2018-05-08] MEDS ORDERED: FENTANYL INJ 100 mcg ONE (21:07)
[2018-05-08] MEDS ORDERED: NAROPIN EPIDURAL 0.2% + FENTANYL 90MCG 60 ML EPI ONE (21:08)
[2018-05-08] MEDS ORDERED: ADRENALINE CHL INJ ONE (21:08)
[2018-05-09] MEDS ORDERED: D5LR 1L W PITOCIN 10 UNITS/L 10 UNITS/1,000 ML BAG IV ONE (01:08)
[2018-05-09] MEDS: D5LR 1L W PITOCIN 10 UNITS/L 10 UNITS/1,000 ML BAG IV PRN (02:20)
[2018-05-09] MEDS ORDERED: NAROPIN EPIDURAL 0.2% + FENTANYL 90MCG 60 ML EPI ONE (02:42)
[2018-05-09] MEDS: D5 1/2 NS 1000 ML 1,000 ML IV SCH (03:01)
[2018-05-09] MEDS ORDERED: REGLAN INJ 10 MG VIAL ONE (05:40)
[2018-05-09] MEDS: REGLAN INJ 10 MG VIAL IVP PRN (05:45)
[2018-05-09] MEDS ORDERED: ANCEF 1 GRAM IV PREMIX* 1 G/50 ML BAG IV ONE (08:41)
[2018-05-09] MEDS ORDERED: DURAMORPH ONE (09:23)
[2018-05-09] MEDS ORDERED: XYLOCAINE 2% and EPINEPHRINE 1:100,000 ONE (09:23)
[2018-05-09] MEDS ORDERED: NS IRRIGATION 1000 ML ONE (09:45)
[2018-05-09] MEDS ORDERED: BENADRYL INJ 50 MG VIAL IVP PRN (10:34)
[2018-05-09] MEDS ORDERED: DILAUDID INJ IVP PRN (10:34)
[2018-05-09] MEDS ORDERED: PHENERGAN INJ 25 MG IVP PRN (10:34)
[2018-05-09] MEDS ORDERED: ZOFRAN INJ 4 MG VIAL IVP PRN ×2 (10:34→15:20)
[2018-05-09] MEDS ORDERED: REGLAN INJ 10 MG VIAL IVP PRN (10:34)
[2018-05-09] MEDS ORDERED: MYLICON TAB 80 MG CHEW PO PRN (10:51)
[2018-05-09] MEDS ORDERED: D5 1/2 NS 1000 ML 1,000 ML with PITOCIN 20 UNITS IV SCH ×2 (11:00)
[2018-05-09] MEDS: PERCOCET TAB 5/325 MG PO PRN (11:54)
[2018-05-09] MEDS: MOTRIN TAB 800 MG PO PRN (22:17)
[2018-05-10] MEDS: PERCOCET TAB 5/325 MG PO PRN ×2 (04:09→09:02)
[2018-05-10 05:19] LABS: HEMATOCRIT 31.3 % (36.0-47.0)
[2018-05-10 05:27] LABS: HEMOGLOBIN 10.6 g/dL (12.0-16.0)
[2018-05-10] MEDS ORDERED: NS 100 ML IV 100 ML with VENOFER 400 MG IV NR ×2 (10:00)
[2018-05-10] MEDS: MOTRIN TAB 800 MG PO PRN (13:12)
[2018-05-10] MEDS: TYLENOL 500 MG TAB EXTRA STRENGTH PO PRN (14:36)
[2018-05-10] MEDS: ROXICODONE TAB 15 MG PO PRN (21:32)
[2018-05-11] MEDS: TYLENOL 500 MG TAB EXTRA STRENGTH PO PRN (00:43)
[2018-05-11] MEDS: ROXICODONE TAB 15 MG PO PRN ×3 (04:12→20:40)
[2018-05-11] MEDS: MOTRIN TAB 800 MG PO PRN ×2 (07:24→15:49)
[2018-05-12] MEDS: ROXICODONE TAB 15 MG PO PRN (06:31)
[2018-05-12 10:16] VITALS: BP 142/89
== END 2018-05-12 10:50 | disposition home or self-care (01) | DRG 788 ==
LOC: ER 05:55 → LD 07:12 → MED/SURG 05-09 11:41
PROVIDERS: ADMIT Obstetrics & Gynecology Obstetrics; ATTEND Obstetrics & Gynecology Obstetrics
DX: Z3A.38 38 weeks gestation of pregnancy; Z37.0 Single live birth; O62.0 Primary inadequate contractions
CPT/HCPCS: 36415; 80053; 81001; 84112; 85014; 85018; 85025; 86592; 86850; 86900; 86901; 99284; A4222; J0171; J0690; J1170; J1756; J2001; J2250; J2300; J2405; J2590; J2704; J2765; J3010; J7050; J7120; S5010